=== PATIENT | male | born 1985 | race Caucasian/White ===

== ENCOUNTER 2016-11-18 19:44 | Emergency (ER) | payer OTHER ==
[~2016-11-18] VITALS: Ht 182.9 cm; Wt 90.9 kg
[2016-11-18 19:52] VITALS: BP 117/79; PULSE 84; RESP 16; O2SAT 96
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
--- NOTE | 2016-11-18 22:09 | DRSVH ---
PROCEDURE: US TESTICULAR SONOGRAM WITH DOPPLER INDICATIONS: left testicular pain TECHNIQUE: Real-time scanning was performed of the scrotum and testicles, with image documentation. Color and p ulse Doppler interrogation was performed of both testicles. COMPARISON: None. FINDINGS: Right: Testicle is normal in size at 4.4 x 2.3 x 1.9 cm, and homogenous in echotexture. Epididymis is normal in overall size and morphology. No hydrocele or varicoceles. Overlying scrotal skin is no rmal in thickness. Left: Testicle is normal in size at 4.3 x 2.4 x 2.0 cm, and homogeneous in echotexture. Epididymis is normal in overall size and morphology. No hydrocele or varicoceles. Overlying scrotal skin is no rmal in thickness. Doppler: Color and pulse Doppler demonstrate normal and symmetric arterial flow in both testicles. IMPRESSION: Testicles are normal in size and echogenicity. Vascular flow is normal. No evidence for i nflammation is identified. Cause of pain is not identified. Dictated by: Moise Aceves M.D. on 11/18/2016 at 22:04 Approved by: Moise Aceves M.D. on 11/18/2016 at 22:06
[2016-11-18] MEDS ORDERED: cefTRIAXone Inj 250 MG, Lidocaine PF 1% Inj 0.9 ML in Syringe 1 EACH IM ONE (22:25)
[2016-11-18] MEDS ORDERED: cefTRIAXone 1,000 mg Inj IM ONE (22:35)
[2016-11-18] MEDS ORDERED: LIDOCAINE 1% IM ONE (22:50)
[2016-11-18] MEDS ORDERED: CEFTRIAXONE IM ONE (22:50)
[2016-11-18 22:56] VITALS: BP 126/82; PULSE 77; RESP 18; O2SAT 96
[2016-11-19] MEDS ORDERED: _Doxycycline 100 mg Tablet PO SCH (08:30)
== END 2016-11-18 23:12 | disposition home or self-care (01) ==
LOC: SED 19:44
DX: N45.1 Epididymitis (principal); J45.909 Unspecified asthma, uncomplicated; F17.200 Nicotine dependence, unspecified, uncomplicated
CPT/HCPCS: 76870; 93975; 96372; 99284; J0696